=== PATIENT | female | born 2005 | race Two or more races ===

== ENCOUNTER 2024-07-20 16:26 | Emergency (ER) | payer MEDICAID, OTHER ==
[~2024-07-20] VITALS: Ht 165.1 cm; Wt 80.7 kg
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
[2024-07-20] MEDS ORDERED: CYCL-837 PO (17:12)
[2024-07-20] MEDS ORDERED: IBUP-1454 PO (17:12)
[2024-07-20 17:14] VITALS: BP 147/58; PULSE 84; RESP 6; O2SAT 100
== END 2024-07-20 22:17 | disposition home or self-care (01) ==
LOC: ER 16:26
DX: S13.4XXA Sprain of ligaments of cervical spine, initial encounter (principal); S16.1XXA Strain of muscle, fascia and tendon at neck level, initial encounter; S29.012A Strain of muscle and tendon of back wall of thorax, initial encounter; Z90.49 Acquired absence of other specified parts of digestive tract; V43.52XA Car driver injured in collision with other type car in traffic accident, initial encounter; Y93.89 Activity, other specified; Y92.410 Unspecified street and highway as the place of occurrence of the external cause; Y99.8 Other external cause status